=== PATIENT | male | born 1990 | race Two or more races ===

== ENCOUNTER 2022-09-22 07:16 | Emergency (ER) | payer OTHER ==
[~2022-09-22] VITALS: Ht 167.6 cm; Wt 88.5 kg
--- NOTE | 2022-09-22 07:25 | NUR ---
RECEVED PT FROM FROM HOME C/O BACK PAIN GOTINR WORSE THIS MORNING
[2022-09-22] MEDS ORDERED: KETOROLAC TROMETHAMINE INJ 30 MG/ML VIAL ONE (08:00)
[2022-09-22] MEDS ORDERED: CYCLOBENZAPRINE 10 MG TABLET ONE (08:01)
[2022-09-22] MEDS: KETOROLAC TROMETHAMINE INJ 30 MG/ML VIAL IM ONE (08:04)
[2022-09-22] MEDS: CYCLOBENZAPRINE 10 MG TABLET PO ONE (08:04)
[2022-09-22] MEDS ORDERED: KETO10TA2 PO (08:43)
[2022-09-22] MEDS ORDERED: CYCL5TAB PO (08:43)
--- NOTE | 2022-09-22 08:48 | NUR ---
Patient discharged to home in stable condition. Written and verbal after care instructions given. Patient verbalizes understanding of instruction.
[2022-09-22 08:49] VITALS: BP 114/74
== END 2022-09-22 08:50 | disposition home or self-care (01) ==
LOC: ER 07:18
DX: S23.3XXA Sprain of ligaments of thoracic spine, initial encounter (principal); Z79.899 Other long term (current) drug therapy; X50.0XXA Overexertion from strenuous movement or load, initial encounter; X50.9XXA Other and unspecified overexertion or strenuous movements or postures, initial encounter; Y93.89 Activity, other specified; Y92.89 Other specified places as the place of occurrence of the external cause; Y99.8 Other external cause status
CPT/HCPCS: 99283; 96372; J1885

== ENCOUNTER 2023-01-21 03:41 | Emergency (ER) | payer OTHER ==
[~2023-01-21] VITALS: Ht 167.6 cm; Wt 87.1 kg
[~2023-01-21 03:41] MED LIST: CYCL5TAB PO; KETO10TA2 PO
--- NOTE | 2023-01-21 03:54 | NUR ---
BIBWIFE, EPIGASTRIC PAIN, BURNING SENSATION 30 MINUTES PRIOR TO ARRIVAL. 08/01 PAIN
[2023-01-21] MEDS ORDERED: LIDOCAINE VISCOUS 2% UD 15 ML UDC MM ONE (04:00)
[2023-01-21] MEDS ORDERED: MAG HYDROX/AL HYDROX/SIMETH 30 ML UDC PO ONE (04:00)
--- NOTE | 2023-01-21 04:06 | NUR ---
BLOOD COLLECTED SENT TO LAB
--- NOTE | 2023-01-21 04:06 | NUR ---
IV STARTED R AC 20G
[2023-01-21] MEDS ORDERED: MAG HYDROX/AL HYDROX/SIMETH 30 ML UDC ONE (04:09)
[2023-01-21] MEDS ORDERED: LIDOCAINE VISCOUS 2% UD 15 ML UDC ONE (04:10)
[2023-01-21 04:24] LABS: BASOPHILS # (AUTO) 0.2 K/uL (0.0-0.2); BASOPHILS % (AUTO) 2.6 % (0.0-2.0); EOSINOPHILS % (AUTO) 5.4 % (0.0-6.0); HEMATOCRIT 48 % (39-51); HEMOGLOBIN 16.3 g/dL (13.5-17.5); LYMPHOCYTES # (AUTO) 2.6 K/uL (0.8-4.8); LYMPHOCYTES % (AUTO) 33.6 % (20.0-44.0); MEAN CORPUSCULAR HGB CONC 34 g/dl (31.0-36.0); MEAN CORPUSCULAR VOLUME 89 fL (80-96); MONOCYTES # (AUTO) 0.5 K/uL (0.1-1.30); MONOCYTES % (AUTO) 6.4 % (2.0-12.0); NEUTROPHILS # (AUTO) 4.1 K/uL (1.8-8.9); PLATELET COUNT (AUTO) 258 K/uL (150-450); RED BLOOD CELL COUNT(AUTO) 5.41 MIL/uL (4.5-6.0); WHITE BLOOD COUNT (AUTO) 7.9 K/uL (4.3-11.0)
[2023-01-21] MEDS ORDERED: KETOROLAC TROMETHAMINE INJ 30 MG/ML VIAL ONE (04:29)
[2023-01-21] MEDS ORDERED: MORPHINE SULFATE INJ 2 MG/ML DISP.SYRIN IV ONE (04:30)
[2023-01-21] MEDS ORDERED: KETOROLAC TROMETHAMINE INJ 30 MG/ML VIAL IV ONE (04:30)
[2023-01-21] MEDS ORDERED: MORPHINE SULFATE INJ 4 MG/ML DISP.SYRIN ONE (04:39)
[2023-01-21 04:45] LABS: ALBUMIN 4.1 g/dL (3.4-5.0); BILIRUBIN,DIRECT 0.1 mg/dL (0.0-0.2); BILIRUBIN,TOTAL 0.3 mg/dL (0.2-1.0); CALCIUM, SERUM 8.8 mg/dL (8.5-10.1); POTASSIUM 3.7 mmol/L (3.5-5.1); TOTAL PROTEIN, SERUM 7.9 g/dL (6.4-8.2)
[2023-01-21] MEDS ORDERED: MAG-55 PO (05:01)
[2023-01-21] MEDS ORDERED: PANT20TA2 PO (05:01)
--- NOTE | 2023-01-21 05:14 | NUR ---
Patient discharged to home in stable condition. Written and verbal after care instructions given. Patient verbalizes understanding of instruction.IV removed. Catheter intact and site benign. Pressure and 4x4 applied to site. No bleeding noted.
[2023-01-21 05:15] VITALS: BP 136/78
== END 2023-01-21 05:16 | disposition home or self-care (01) ==
LOC: ER 04:03
DX: R10.13 Epigastric pain (principal); Z79.899 Other long term (current) drug therapy
CPT/HCPCS: 99284; 96374; 71045; 96375; 85025; 80048; 83690; 80076; 36415; J2270; J1885